=== PATIENT | male | born 1990 | race Caucasian/White ===

== ENCOUNTER 2017-01-02 07:23 | Observation (INO) ==
[2017-01-02] MEDS ORDERED: Ondansetron 4 MG/2 ML VIAL IVP ONE ×2 (07:28→16:41)
[2017-01-02] MEDS ORDERED: 0.9 % Sodium Chloride 1,000 ML IVC ONE (07:28)
[2017-01-02] MEDS ORDERED: Ketorolac 30 MG/ML VIAL IVP ONE (07:36)
--- NOTE | 2017-01-02 07:49 | Emergency Department Note ---
Disposition Clinical Impression: Ureterolithiasis, Pyelonephritis Disposition: Admitted As Inpatient Condition: Good Forms: ED Satisfaction Letter, Work/School Release Time of Disposition: 09:21 Abdominal Pain HPI - General Chief Complaint: ED Abdominal Pain Stated Complaint: RLQ Pain Time Seen by Provider: 01/02/17 07:28 Source: patient Mode of arrival: ambulatory Limitations: no limitations Nursing Notes Reviewed: Yes Vital Signs Reviewed: Yes - History of Present Illness HPI Narrative: 26 year old male presents to the ED with complaints of RLQ pain. He staets that the pain started yesterday in his right lower back and then came around to the RLQ. He states that is subsided yesterday but then last night around 3 hours ago it came back and is he is anxious and in moderate discomfort at bedside. Abraham states that this is a first time ocurance and that he doesnt have ny previous history of abdominal surgeries in addition he has been vomiting about 8 -9 times today with clear fluid, NBNB. Normal bowel movements, no hematuira or bloody stools. Abraham states that it is difficult for him to urinate at this time. Pain Scale: 9 - Related Data Home Medications Medication Instructions Recorded Confirmed No Known Home Drugs 01/02/17 01/02/17 Allergies Allergy/AdvReac Type Severity Reaction Status Date / Time No Known Allergies Allergy Verified 01/02/17 07:27 Constitutional: Denies: fever, chills, weakness, weight change Eyes: Denies: eye pain, eye discharge, vision change ENT ED: Denies: ear pain, throat pain, dental pain, hearing loss, epistaxis, congestion, dysphagia Cardiovascular: Denies: chest pain, palpitations, dyspnea on exertion, edema, syncope Respiratory: Denies: cough, dyspnea, wheezes, hemoptysis, stridor Gastrointestinal: Reports: abdominal pain, nausea, vomiting. Denies: diarrhea, constipation, hematemesis, melena, hematochezia Genitourinary: Denies: urgency, dysuria, frequency, hematuria Musculoskeletal: Denies: back pain, neck pain, arthralgia, myalgia Integumentary: Denies: rash, abrasion, lesions Neurological: Denies: headache, weakness, numbness, paresthesias, confusion, abnormal gait, vertigo Psychiatric: Denies: anxiety, depression, suicidal thoughts, homicidal thoughts , auditory hallucinations, visual hallucinations Endocrine: Denies: fatigue Hematological/Lymphatic: Denies: easy bleeding, easy bruising Allergic/Immunologic: Denies: facial swelling, urticaria Abdominal Pain PMH - Past Medical History Medical history: Reports: no medical history Male Surgical History: Reports: non-contributory, other Psychiatric history: Reports: no psych history - Social History Smoking status: Current every day smoker Alcohol use: Reports: none Drug use: Reports: none Physical Exam - General Limitations: no limitations General appearance: alert - Head Head exam: atraumatic, normocephalic, normal inspection - Eye Eye exam: Present: normal appearance, PERRL, EOMI - Expanded Eye Exam Pupils: Left: reactive - ENT ENT exam: normal exam, normal oropharynx, mucous membranes moist - Expanded ENT Exam External ear exam: Present: normal external inspection Mouth exam: Present: normal external inspection Teeth exam: Present: normal inspection Throat exam: Present: normal inspection - Neck Neck exam: Present: normal inspection, full ROM, trachea midline - Chest Chest inspection: Present: normal inspection, symmetric chest wall rise - Respiratory Respiratory exam: Present: normal lung sounds bilaterally - Cardiovascular Cardiovascular exam: Present: regular rate, normal rhythm, normal heart sounds - Abdominal Exam Abdominal exam: Present: soft, tenderness, normal bowel sounds. Absent: Non- Tender, distention, guarding, rebound, rigidity Abdominal tenderness: Present: RLQ, mild - Extremities Exam Extremities exam: Present: normal inspection, full ROM. Absent: tenderness, pedal edema - Expanded Upper Extremity Exam Shoulder exam: Present: normal inspection, full ROM Arm exam: Present: normal inspection, full ROM Elbow exam: Present: normal inspection, full ROM Forearm/Wrist exam: Present: normal inspection, full ROM Hand exam: Present: normal inspection, full ROM Vascular exam: Normal: capillary refill, radial pulse - Expanded Lower Extremity Exam Hip/Pelvis exam: Present: normal inspection, full ROM Upper leg exam: Present: normal inspection, full ROM Knee exam: Present: normal inspection, full ROM Lower leg exam: Present: normal inspection, full ROM Ankle exam: Present: normal inspection, full ROM Foot/toe exam: Present: normal inspection, full ROM Neurovascular/Tendon exam: Absent: motor deficit, sensory deficit, tendon deficit - Back Exam Back exam: Present: normal inspection, full ROM. Absent: tenderness - Neurological Exam Neurological exam: Present: alert, oriented X3 - Expanded Neurological Exam Patient oriented to: Present: person, place, time Coma Scale Eye Opening: Spontaneous Coma Scale Motor Response: Obeys Commands Coma Scale Verbal Response: Oriented Coma Scale Total: 15 - Psychiatric Psychiatric exam: Present: normal affect, normal mood - Skin Skin exam: Present: warm, dry, intact, normal color Course Course Narrative: we will do abdominal pain workup include ABCT with IVF/zofran/toradol to rule out pyelo, vs kidney stones vs appendicits. - Consultations Consultation #1: discussed case with Dr. mendoza and he accepts patinet for admission. Patinet is agreeable to admission as well. Rocephin given. Time: 09:20 Vital Signs Temperature 97.6 F 01/02/17 07:25 Pulse Rate 72 01/02/17 07:25 Respiratory Rate 16 01/02/17 07:25 Blood Pressure 170/103 01/02/17 07:25 O2 Sat by Pulse Oximetry 99 01/02/17 07:25 Temperature 97.6 F 01/02/17 07:25 Pulse Rate 95 01/02/17 09:20 Respiratory Rate 16 01/02/17 09:20 Blood Pressure 131/88 01/02/17 09:20 O2 Sat by Pulse Oximetry 98 01/02/17 09:20 Oxygen Delivery Oxygen Delivery Room Air Abdominal Pain - Lab Data Result diagrams: 01/02/17 07:38 01/02/17 07:38 Lab Results 01/02/17 01/02/17 01/02/17 Range/Units 07:38 07:38 07:38 WBC 17.9 H (4.3-11.1) K/mcL RBC 5.64 H (4.19-5.50) M/mcL Hgb 16.8 (12.9-16.9) g/dL Hct 47.8 (37.5-50.1) % MCV 84.8 (83.0-100.0) fL MCH 29.8 (28.0-33.3) pg MCHC 35.1 (31.6-35.5) g/dL RDW 12.5 (11.5-14.5) % Plt Count 226 (140-400) K/mcL MPV 12.2 (9.4-12.4) fL Immature Gran % 1.1 (0-4) % Seg Neutrophils % 72.3 % Lymphocytes % 16.8 % Monocytes % 7.2 % Eosinophils % 1.8 % Basophils % 0.8 % Neutrophils # 12.9 H (1.6-8.9) K/mcL Lymphocytes # 3.0 (0.6-4.6) K/mcL Monocytes # 1.3 (0.0-1.3) K/mcL Eosinophils # 0.3 (0.0-0.6) K/mcL Basophils # 0.2 (0.0-0.2) K/mcL Sodium 144 (136-145) mEq/L Potassium 3.5 (3.5-4.5) mEq/L Chloride 107 (98-109) mEq/L Carbon Dioxide 25 (19-29) mEq/L BUN 11 (8-26) mg/dL Creatinine 1.13 (0.72-1.25) mg/dL Est GFR ( Amer) > 60 (> 60) Est GFR (Non-Af Amer) > 60 (> 60) BUN/Creatinine Ratio 10 (6-26) Glucose 135 H (70-99) mg/dL Calculated Osmolality 299 (280-300) Lactic Acid 1.7 (0.5-2.2) mmol/L Calcium 9.8 (8.6-10.8) mg/dL Total Bilirubin 0.7 (0.2-1.2) mg/dL Direct Bilirubin 0.3 (0.0-0.5) mg/dL Indirect Bilirubin 0.4 (0.0-1.2) mg/dL AST 42 H (5-34) Units/L ALT 97 H (0-55) Units/L Alkaline Phosphatase 45 (38-126) Units/L Serum Total Protein 8.0 (6.0-8.3) g/dL Albumin 4.4 (3.5-5.0) g/dL Globulin 3.6 H (2.4-3.5) g/dL Albumin/Globulin Ratio 1.2 (1.1-2.2) Lipase 10 (8-78) Units/L Urine Color (Yellow) Urine Clarity (Clear) Urine pH (5.0-8.0) pH Units Ur Specific [place] (1.010-1.025) Urine Protein (Neg-Trace) mg/dL Urine Glucose (UA) (Normal) mg/dL Urine Ketones (Negative) mg/dL Urine Blood (Negative) Urine Nitrite (Negative) Urine Bilirubin (Negative) Urine Urobilinogen (Normal) mg/dL Ur Leukocyte Esterase (Negative) Urine Microscopic RBC (0-3) per hpf Urine Microscopic WBC (0-3) per hpf Ur Squamous Epith Cells (None-Few) per lpf Urine Bacteria (None-Few) per hpf Hyaline Casts (None-Few) per lpf Ur Culture Indicated? (NO) 01/02/17 Range/Units 08:45 WBC (4.3-11.1) K/mcL RBC (4.19-5.50) M/mcL Hgb (12.9-16.9) g/dL Hct (37.5-50.1) % MCV (83.0-100.0) fL MCH (28.0-33.3) pg MCHC (31.6-35.5) g/dL RDW (11.5-14.5) % Plt Count (140-400) K/mcL MPV (9.4-12.4) fL Immature Gran % (0-4) % Seg Neutrophils % % Lymphocytes % % Monocytes % % Eosinophils % % Basophils % % Neutrophils # (1.6-8.9) K/mcL Lymphocytes # (0.6-4.6) K/mcL Monocytes # (0.0-1.3) K/mcL Eosinophils # (0.0-0.6) K/mcL Basophils # (0.0-0.2) K/mcL Sodium (136-145) mEq/L Potassium (3.5-4.5) mEq/L Chloride (98-109) mEq/L Carbon Dioxide (19-29) mEq/L BUN (8-26) mg/dL Creatinine (0.72-1.25) mg/dL Est GFR ( Amer) (> 60) Est GFR (Non-Af Amer) (> 60) BUN/Creatinine Ratio (6-26) Glucose (70-99) mg/dL Calculated Osmolality (280-300) Lactic Acid (0.5-2.2) mmol/L Calcium (8.6-10.8) mg/dL Total Bilirubin (0.2-1.2) mg/dL Direct Bilirubin (0.0-0.5) mg/dL Indirect Bilirubin (0.0-1.2) mg/dL AST (5-34) Units/L ALT (0-55) Units/L Alkaline Phosphatase (38-126) Units/L Serum Total Protein (6.0-8.3) g/dL Albumin (3.5-5.0) g/dL Globulin (2.4-3.5) g/dL Albumin/Globulin Ratio (1.1-2.2) Lipase (8-78) Units/L Urine Color Yellow (Yellow) Urine Clarity Cloudy A (Clear) Urine pH 6.5 (5.0-8.0) pH Units Ur Specific [place] > 1.030 H (1.010-1.025) Urine Protein Trace (Neg-Trace) mg/dL Urine Glucose (UA) Normal (Normal) mg/dL Urine Ketones 15 H (Negative) mg/dL Urine Blood Large H (Negative) Urine Nitrite Negative (Negative) Urine Bilirubin Negative (Negative) Urine Urobilinogen Normal (Normal) mg/dL Ur Leukocyte Esterase Trace H (Negative) Urine Microscopic RBC TNTC H (0-3) per hpf Urine Microscopic WBC 5-15 H (0-3) per hpf Ur Squamous Epith Cells Many H (None-Few) per lpf Urine Bacteria None Seen (None-Few) per hpf Hyaline Casts None Seen (None-Few) per lpf Ur Culture Indicated? YES A (NO)
[2017-01-02 08:10] LABS: Basophils # 0.2 K/mcL (0.0-0.2); Basophils % 0.8 %; Eosinophils # 0.3 K/mcL (0.0-0.6); Eosinophils % 1.8 %; Hematocrit 47.8 % (37.5-50.1); Hemoglobin 16.8 g/dL (12.9-16.9); Immature Granulocytes % 1.1 % (0-4); Lymphocytes % 16.8 %; Mean Corpuscular HGB Conc 35.1 g/dL (31.6-35.5); Mean Corpuscular Hemoglobin 29.8 pg (28.0-33.3); Mean Corpuscular Volume 84.8 fL (83.0-100.0); Mean Platelet Volume 12.2 fL (9.4-12.4); Monocytes # 1.3 K/mcL (0.0-1.3); Monocytes % 7.2 %; Neutrophils # 12.9 K/mcL (1.6-8.9); Platelet Count 226 K/mcL (140-400); Red Blood Count 5.64 M/mcL (4.19-5.50); Red Cell Distribution Width 12.5 % (11.5-14.5); Segmented Neutrophils % 72.3 %
[2017-01-02 08:13] LABS: Alanine Aminotransferase 97 Units/L (0-55); Albumin 4.4 g/dL (3.5-5.0); Albumin/Globulin Ratio 1.2 (1.1-2.2); Alkaline Phosphatase 45 Units/L (38-126); Aspartate Amino Transferase 42 Units/L (5-34); BUN/Creatinine Ratio 10 (6-26); Bilirubin,Direct 0.3 mg/dL (0.0-0.5); Bilirubin,Indirect 0.4 mg/dL (0.0-1.2); Bilirubin,Total 0.7 mg/dL (0.2-1.2); Blood Urea Nitrogen 11 mg/dL (8-26); Calcium 9.8 mg/dL (8.6-10.8); Carbon Dioxide 25 mEq/L (19-29); Chloride 107 mEq/L (98-109); Globulin 3.6 g/dL (2.4-3.5); Glucose 135 mg/dL (70-99); Lipase 10 Units/L (8-78); Osmolality,Calculated 299 (280-300); Potassium 3.5 mEq/L (3.5-4.5); Sodium 144 mEq/L (136-145); eGFR For African Americans > 60 (> 60); eGFR For Non-African Americans > 60 (> 60)
[2017-01-02 08:55] LABS: Bilirubin,Urine Negative (Negative); Blood,Urine Large (Negative); Clarity,Urine Cloudy (Clear); Color,Urine Yellow (Yellow); Glucose,Urine (UA) Normal (Normal); Ketones,Urine 15 mg/dL (Negative); Leukocyte Esterase,Urine Trace (Negative); Nitrite,Urine Negative (Negative); PH,Urine 6.5 pH Units (5.0-8.0); Protein,Urine Trace mg/dL (Neg-Trace); Specific Gravity,Urine > 1.030 (1.010-1.025); Urobilinogen,Urine Normal (Normal)
[2017-01-02 08:58] LABS: Bacteria,Urine None Seen per hpf (None-Few); Hyaline Casts,Urine None Seen per lpf (None-Few); RBC,Urine TNTC per hpf (0-3); Squamous Epithelial Cell,Urine Many per lpf (None-Few)
[2017-01-02] MEDS ORDERED: Ondansetron 4 MG/2 ML VIAL IVP PRN ×2 (11:00→17:57)
[2017-01-02] MEDS ORDERED: *HR* HYDROmorphone (PF) 1 MG/ML SYRINGE IVP PRN ×3 (11:00→17:57)
[2017-01-02] MEDS ORDERED: 0.9 % Sodium Chloride 1,000 ML IVC SCH (11:00)
[2017-01-02] MEDS ORDERED: Naloxone 0.4 MG/ML INJ IVP PRN ×2 (11:00→17:57)
--- NOTE | 2017-01-02 12:20 | Urology History & Physical ---
Date of Encounter: 01/02/17 Time of Encounter: 12:18 Assessment and Plan (1) Ureterolithiasis Current Visit: Yes Status: Acute 26-year-old man with a right proximal ureteral stone. He has been admitted for pain control and antibiotic. He has an elevated white blood cell count of 17.9, but his urinalysis only shows 5-15 white blood cells and no bacteria was noted. We discussed options with him. I discussed right stent placement versus definitive right ureteroscopic stone extraction. I think it is reasonable to go and proceed with a right ureteroscopic stone extraction as he does not have an appearance of a urinary tract infection. Therefore, we will schedule him for a right ureteroscopy, laser lithotripsy, and stent placement. He was informed of the risks of the procedure including but not limited to bleeding, infection, injury to other structures, need for further procedures, stent irritation, incomplete fragmentation, ureteral perforation, need for nephrostomy tube, need for open repair, risks unforeseen, and the risk of anesthesia. He is willing to proceed. History of Present Illness Chief complaint: Right flank pain HPI: Mr. Starkey is a 26 year old male who presents with right flank pain x 2 days. The pain began yesterday and is located in the right flank. It radiates to the right lower quadrant. The pain is sharp and was severe. The pain returned this morning at 4 AM and he came to the emergency department. A CT scan was obtained which showed a right proximal ureteral stone with evidence of hydronephrosis. He had an elevated white blood cell count and he was given IV antibiotics. He denies any fevers or chills. He does report having some nausea with emesis. He denies any history of diabetes, transplant, or chronic steroid use. Past Med Surg Social Fam HX - Past Medical History Medical history: no medical history Psychiatric history: no psych history - Social History Smoking Status: Current every day smoker Alcohol use: none Drug use: none - Family History Father Hx Family Genitourinary Disorders: Yes (Kidney stones) Medications and Allergies No Known Home Drugs 01/02/17 [History] 3 Allergy/AdvReac Type Severity Reaction Status Date / Time No Known Allergies Allergy Verified 01/02/17 07:27 Review of Systems - Constitutional no chills, no fever(s) - EENT Nose, mouth and throat: no dizziness - Cardiovascular no chest pain - Respiratory no dyspnea - Gastrointestinal nausea, vomiting - Genitourinary flank pain, no hematuria - Musculoskeletal no back pain - Integumentary no erythema, no rash - Neurological no weakness - Psychiatric no suicidal ideation - Hematologic/Lymphatic no easy bleeding - Allergic/Immunologic no wheezing Exam Initial Vital Signs Temp Pulse Resp BP Pulse Ox 97.6 F 72 16 170/103 99 01/02/17 07:25 01/02/17 07:25 01/02/17 07:25 01/02/17 07:25 01/02/17 07:25 - General physical appearance Present: well developed, well nourished, no distress - Eyes Absent: icteric - ENT Present: normal nares - Neck Present: trachea midline - Respiratory Present: normal respiratory effort - Cardiovascular Cardiovascular exam IM: RRR - Abdomen Abdomen: Present: soft Urology Results - Labs 01/02/17 07:38 01/02/17 07:38 Abnormal lab results WBC 17.9 K/mcL (4.3-11.1) H 01/02/17 07:38 RBC 5.64 M/mcL (4.19-5.50) H 01/02/17 07:38 Neutrophils # 12.9 K/mcL (1.6-8.9) H 01/02/17 07:38 Glucose 135 mg/dL (70-99) H 01/02/17 07:38 AST 42 Units/L (5-34) H 01/02/17 07:38 ALT 97 Units/L (0-55) H 01/02/17 07:38 Globulin 3.6 g/dL (2.4-3.5) H 01/02/17 07:38 Urine Clarity Cloudy (Clear) A 01/02/17 08:45 Ur Specific [place] > 1.030 (1.010-1.025) H 01/02/17 08:45 Urine Ketones 15 mg/dL (Negative) H 01/02/17 08:45 Urine Blood Large (Negative) H 01/02/17 08:45 Ur Leukocyte Esterase Trace (Negative) H 01/02/17 08:45 Urine Microscopic RBC TNTC per hpf (0-3) H 01/02/17 08:45 Urine Microscopic WBC 5-15 per hpf (0-3) H 01/02/17 08:45 Ur Squamous Epith Cells Many per lpf (None-Few) H 01/02/17 08:45 Ur Culture Indicated? YES (NO) A 01/02/17 08:45 All other labs normal. - Imaging CT scan - abdomen: report reviewed, image reviewed CT scan - pelvis: report reviewed, image reviewed
--- NOTE | 2017-01-02 15:13 | Anesthesia Evaluation PreOp ---
Date of Encounter: 01/02/17 Time of Encounter: 16:04 - Past History Planned Operation: right USE with stent Cardiac History: Denies any Significant Hx Pulmonary History: Smoker [employer] History: Denies Any Significant HX Other Medical History: Denies Any Significant HX Anesthesia History: Past Anesthesia (no PSH) Alcohol Use: none Drug use: none Medications and Allergies No Known Home Drugs 01/02/17 [History] 3 Allergy/AdvReac Type Severity Reaction Status Date / Time No Known Allergies Allergy Verified 01/02/17 07:27 - Meds/Allergy Pre-op Review Medications Reviewed: Yes Allergies Reviewed: Yes Beta Blockers on Current Med List: No Anesthesia Results - Labs 01/02/17 07:38 01/02/17 07:38 Anesthesia Exam Selected Entries 01/02/17 12:57 Temperature 97.7 F Pulse Rate 77 Blood Pressure 110/71 O2 Sat by Pulse Oximetry 96 Weight: 86kg NPO (# of Hours): 8 - HEENT Pupil (Motor): EOMI Mallampati: II Teeth: Normal Oral Opening: Greater than 3 - [employer] LOC: Oriented [employer] Motor: Normal RUE, Normal LUE, Normal RLE, Normal LLE, Normal Face [employer] Sensory: Normal: RUE, LUE, RLE, LLE, Face - Cardiac Rhythm: Regular Murmur: None - Pulmonary Breath Sounds: bilateral Clear Respiratory Effort: Symmetrical Anesthesia Assess/Plan ASA Score: 2 Modified [place] Scale for Level of Consciousness: Cooperative, oriented, and tranquil Anesthetic Plan: General Monitoring Plan: Standard Monitors Recovery Plan: PACU (discusse dGA with patient, agrees to proceed)
[2017-01-02] MEDS ORDERED: *HR* Propofol 200 MG/20 ML VIAL IVP ONE (15:50)
[2017-01-02] MEDS ORDERED: *HR* Succinylcholine 200 MG/10 ML VIAL IVP ONE (15:51)
[2017-01-02] MEDS ORDERED: Lidocaine -MPF 2% 2 ML VIAL ONE (15:51)
[2017-01-02] MEDS ORDERED: *HR* Midazolam HCl 2 MG/2 ML VIAL ONE (16:10)
[2017-01-02] MEDS ORDERED: *HR* FentaNYL (PF) 100 MCG/2 ML VIAL ONE ×2 (16:11→16:39)
--- NOTE | 2017-01-02 16:16 | Operative Note ---
Date of procedure: 01/02/17 Pre-op diagnosis: Right ureteral stone Post-op diagnosis: same Procedure: Right ureteroscopy and stent placement. Implants: 6 [place] by 26 cm double-J stent. Complications: None. Anesthesia: JASON Surgeon: Andres Dill Estimated blood loss (cc): 1 Condition: stable Disposition: PACU Procedure in Detail: Indications: Mr. Starkey is a 26-year-old gentleman who has a history of right flank pain. A CT scan showed a 5 mm stone in the proximal right ureter. He elected to undergo a right ureteroscopy, laser lithotripsy, and stent placement. He is aware of the risks of the procedure including but not limited to bleeding, infection, injury to other structures, need for further procedures, stent irritation, and the risk of anesthesia. He is willing to proceed. Procedure: After informed consent was obtained the patient was brought back to the operating room and placed in supine position. A time out was performed. General anesthesia was administered and an LMA was placed. He was then placed in the lithotomy position. He was prepped and draped in the usual sterile fashion. Cystoscopy was performed. The anterior urethra was normal. There was no evidence of bladder tumors. The ureteral orifices were in the normal orthotopic position. The Zip wire was placed in the right ureteral orifice and brought into the kidney under fluoroscopic guidance. The ureter was then dilated with the 8/10 for internal dilator. I then advanced the semirigid ureteroscope into the ureter. The ureter was very tight. I was not able to get the semirigid ureteroscope into the proximal ureter. A sensor wire was then placed. I then passed the flexible ureteroscope into the proximal ureter. Resistance was met in the proximal ureter. I did have to remove the zip wire in order to get the scope in place. The sensor wire was then removed. The proximal ureter was very narrow. I was not able to move the scope into the kidney. The scope was slowly withdrawn and no stone was seen in the ureter at this point. The stone must have been pushed into the kidney with all the manipulation. The wire was then replaced. A 6 [place] by 26cm JJ stent was then placed with good curl seen in the kidney and the bladder. The dangle string was removed. The patient was then awakened from general anesthesia and brought to recovery room in good condition. All sponge, needle, and instrument counts were correct.
[2017-01-02] MEDS ORDERED: Dexamethasone 4 MG/ML VIAL ONE (16:35)
[2017-01-02] MEDS ORDERED: Ondansetron 4 MG/2 ML VIAL ONE (16:35)
[2017-01-02] MEDS ORDERED: *HR* Meperidine 25 MG/ML SYRINGE IVP PRN (16:41)
[2017-01-02] MEDS ORDERED: *HR* Labetalol 20 MG/4 ML SYRINGE IVP PRN (16:41)
[2017-01-02] MEDS ORDERED: *HR* Promethazine 25 MG/ML VIAL IVP PRN (16:41)
--- NOTE | 2017-01-02 17:39 | Anesthesia Evaluation Post Op ---
Date of Encounter: 01/02/17 Time of Encounter: 17:38 - Vital Signs Vital Signs: Selected Entries 01/02/17 17:35 Temperature 98.6 F Pulse Rate 85 Respiratory Rate 20 Blood Pressure 141/91 O2 Sat by Pulse Oximetry 94 Oxygen Flow Rate (LPM) 2 - Lungs Lungs: Clear Ascult./Percussion - Airway Airway: Non-obstructed - Cardiovascular Regular Rate - Mental Status Mental Status: Alert & Oriented, Answers Appropriately - Pain Pain Scale: 2 Pain Scale used: Numeric (1 - 10) - Nausea Vomiting Nausea Vomiting: Not Present - Hydration Hydration: Ice chips, Has not voided - Discharge PostOp Status: Transfer Patient to floor
[2017-01-02] MEDS ORDERED: *HR* OxyCODONE/APAP 5/325 TABLET PO PRN (17:57)
[2017-01-02] MEDS: Ketorolac 15 MG/ML VIAL IVP SCH (18:23)
[2017-01-02] MEDS: 0.9 % Sodium Chloride 1,000 ML IVC SCH ×2 (18:26→22:43)
[2017-01-03] MEDS: Ketorolac 15 MG/ML VIAL IVP SCH ×2 (00:04→05:39)
--- NOTE | 2017-01-03 03:11 | Discharge Summary ---
Date of Encounter: 01/03/17 Time of Encounter: 07:03 - Discharge Diagnosis (1) Ureterolithiasis Priority: Primary Status: Acute - Discharge Medications Prescriptions: Docusate [Colace] 100 mg PO BID #60 capsule Oxycodone HCl/Acetaminophen [Percocet 5-325 mg Tablet] 1 each PO Q6H PRN #20 tablet PRN Reason: Pain Phenazopyridine HCl [Pyridium] 200 mg PO TIDAC #12 tab Sulfamethoxazole/Trimeth DS [Bactrim DS] 1 each PO BID #14 tablet Home Medications: Docusate [Colace] 100 mg PO BID #60 capsule 01/03/17 [Rx] Oxycodone HCl/Acetaminophen [Percocet 5-325 mg Tablet] 1 each PO Q6H PRN #20 tablet 01/03/17 [Rx] Phenazopyridine HCl [Pyridium] 200 mg PO TIDAC #12 tab 01/03/17 [Rx] Sulfamethoxazole/Trimeth DS [Bactrim DS] 1 each PO BID #14 tablet 01/03/17 [Rx] Allergies/Adverse Reactions: 3 Allergy/AdvReac Type Severity Reaction Status Date / Time No Known Allergies Allergy Verified 01/02/17 07:27 Date of admission: 01/02/17 09:32 Primary care physician: PCP NONE Discharging clinician: Andres Dill Anticipated date of discharge: 01/03/17 - Patient Status Disposition: Home, Self-Care Condition: Good Functional capacity at discharge: independent ambulation Overall status at discharge: patient is progressing back to baseline - Discharge Instructions Follow Up With: Andres Dill MD [Partnered Physician] - (Dr. Dill's office will call to arrange for surgery.) Additional Instructions: 1. The patient will be scheduled for surgery by Dr. Dill's office. 2. He should expect to feel flank pain with voiding. 3. The patient should call for any fevers, chills, nausea, emesis, or uncontrolled pain. 4. Please provide a work excuse if necessary for up to 2 weeks off. - Diet and Activity Activity: increase activity as tolerated Diet: advance to your usual diet - Hospital Course Hospital course: Mr. Starkey is a 26 year old male who presented with right flank pain. A CT scan showed evidence of a right proximal ureteral stone. On October 31 he underwent a right ureteroscopy and stent placement. His ureter was tight and the stone was not able to be accessed as the scope could not be passed into the kidney. The stone was not seen in the ureter. A stent was then left. On postop day #1 he was doing well. He was afebrile. He was then discharged home in good condition. - Time Spent with Patient Total time spent providing and/or coordinating discharge services: Exam Initial Vital Signs Temp Pulse Resp BP Pulse Ox 97.6 F 72 16 170/103 99 01/02/17 07:25 01/02/17 07:25 01/02/17 07:25 01/02/17 07:25 01/02/17 07:25 - General physical appearance Present: well developed, well nourished, no distress - Eyes Absent: icteric - ENT Present: normal nares - Neck Present: trachea midline - Respiratory Present: normal respiratory effort - Cardiovascular Cardiovascular exam IM: RRR - Abdomen Abdomen: Present: soft - VTE Documentation of Mechanical Device: Intermittent pneumatic compression device
[2017-01-03 06:58] VITALS: BP 144/83
[2017-01-03] MEDS ORDERED: cefTRIAXone 1,000 MG in Water for inj. (sterile) 10 ML IVP SCH (09:00)
== END 2017-01-03 09:40 | disposition home or self-care (01) ==
LOC: EMEROO 07:23 → 3ANU 07:23
PROVIDERS: ADMIT Urology; ATTEND Urology